=== PATIENT | female | born 2000 | race Caucasian/White ===

== ENCOUNTER 2024-08-24 11:50 | Inpatient (IN) | payer BC, MEDICAID ==
[~2024-08-24] VITALS: Ht 165.1 cm; Wt 118.7 kg
--- NOTE | 2024-08-24 12:28 | ED.PDOC ---
Back pain HPI HPI Comments HPI: Poor Historian. Denies any . Had a test two days ago that was negative. Patient on pain management taking Flexeril and ibuprofen which she took this morning at 7:00 a.m.. Patient has chronic low back pain for the last two years got worse today. Denies any recent fall or trauma or injury or lifting. Patient has history of known scoliosis and degenerative disc disease based on MRI obtained a proximally a month ago. Denies any cauda equina like symptoms. Past Medical History: Past Surgical History: HPI: 23y F who presents to the ED via EMS for chief complaint of back pain. - pt states she woke up this AM and states she was having severe lower back pain. - pt states she was unable to get out of bed and despite taking her pain management medications, she was still in pain and called EMS - pt states she has history of chronic back pain and had recent MRI which pt states showed DJD and scoliosis which was taken 1 month prior - pt states she is now having flare up and has been unable to sit, stand or walk - pt in the ED, denies any recent fall or trauma or injury or lifting. - pt states she is seeing pain management taking Flexeril and ibuprofen which she took this morning at 7:00 a.m.. - pt otherwise denies . Had a test two days ago that was negative. Past Medical History: chronic back pain, DJD, scoliosis Past Surgical History: Hysterectomy Social History: Denies ETOH, smoking, and drug use. Medications: Flexeril and ibuprofen Allergies: denies REVIEW OF SYSTEMS: CONSTITUTIONAL: Denies acute: fever, diaphoresis, chills, generalized weakness. HEAD: Denies acute: headache, photophobia Eyes: Denies acute: Double vision, vision loss, eye pain, eye discharge. EARS: Denies acute: tinnitus, hearing loss, ear discharge, ear pain, THROAT: Denies acute: sore throat, swelling, difficulty swallowing , pain with swallowing, change in voice. NECK: Denies acute: neck pain, neck swelling, stiff neck. HEART: Denies acute : chest pain, palpitations, LUNGS: Denies acute: SOB, wheezing, cough, hemoptysis ABDOMEN: Denies acute: abdominal pain, Nausea, Vomiting, diarrhea, melena , hematemesis, hematochezia SKIN: Denies acute: rash, redness, lesions, itchiness. EXTREMITIES: Denies acute: calf pain, numbness, tingling, weakness, denies pain in extremity. Neuro: Denies acute: focal neurological deficit, motor or sensory focal neurological deficit, tremors, seizure like activity, confusion, dizziness, change in mental status, loss of bowel or bladder function, cauda equina like symptoms. : Denies acute: dysuria, hematuria, flank pain, increase in urinary frequency. PSYCH: Denies acute: hallucination, suicidal ideation, homicidal ideation. FEMALE: Denies acute: abnormal vaginal bleeding, foul odor, unusual discharge. PHYSICAL EXAM: General: ---mild-----acute distress, awake and alert. Head: normocephalic, atraumatic. Neck: supple, trachea is midline, no swelling. Throat: Normal phonation. Eyes:, no erythema, no purulent discharge, no proptosis, no icterus. Heart: regular rate, regular rhythm, no significant murmur appreciated. Lungs: no apparent respiratory distress, Able to speak in full sentences. No wheezing, no rhonchi, no crackles. No stridors Clear to auscultation bilaterally. Abdomen: non tender to palpation, non distended, soft, no guarding, no rebound, + bowel sounds. Morbidly obese Neuro: Awake, Alert, oriented to name, self, situation, follows commands GCS=15. Speech is normal. Palpation of the area of complaint: Patient has midline lumbosacral tenderness to palpation. Skin: no petechia, no purpura, no cyanosis, non-pale, not jaundice. Lower extremities: --no - Pitting edema no deformity, no focal swelling, no calf TTP. Patient is able to raise bilateral lower extremities against gravity while laying supine in her gurney. Left lower extremity is better than right. Denies any cauda equina like symptoms Makes eye contact. moves all four extremities. Face: no apparent facial droop. ED COURSE: DISCLAIMER: This medical document was created using an electronic medical record system with voice recognition software and computerized dictation system. Although this document has been carefully reviewed, there might still be some phonetic and typographical errors. Occasional wrong-word or "sound-alike" substitutions may have occurred due to the inherent limitations of voice recognition software. These areas are purely typographical due to imperfections of the software programs and do not reflect any compromise in the patient's medical care. Please read the chart carefully and recognize, using context, where these substitutions have occurred. Chief Complaint: Back Pain Time Seen by MD: 12:14 Primary Care Provider: MALACHI Reviewed Notes: Structures Engineer Notes Allergies: Coded Allergies: NO KNOWN ALLERGIES (Unverified , 11/30/12) Information Source: Patient Mode of Arrival: EMS Past Medical History PAST MEDICAL HISTORY: Denies Surgical History: Denies all surgeries DISHWASHING MACHINE REPAIRER History: No Pertinent DISHWASHING MACHINE REPAIRER History Social History Smoker: Non-Smoker Alcohol: Denies ETOH Use Drugs: Denies Drug Use Was a procedure done? Was a procedure done?: No Back Pain Differential Dx Differential Diagnosis: Other (DDX included but not limited to Cauda Equina syndrome, lumbar radiculopathy, arthritis, disk herniation, sciatica, muscle strain, epidural abscess, transverse myelitis. Cord compression, spinal foraminal stenosis, spinal fractures, spondylosis, central canal stenosis, trauma, muscle sprain/strain, aneurysm/dissection, kidney stones, shingles, arthritis, Guillan [place], neoplasm.) X-Ray, Labs, Meds, VS Vital Signs Date Time Temp Pulse Resp B/P (MAP) Pulse Ox O2 Delivery O2 Flow Rate FiO2 08/24/24 16:00 22 119/69 (86) 99 08/24/24 14:00 Room Air* 0 21 08/24/24 12:13 98.7 87 16 111/87 (95) 100 98.7 Lab Test 08/24/24 16:30 Range/Units White Blood Count 11.0 H 4.4-10.8 10^3/uL Red Blood Count 5.35 H 4.0-5.20 10^6/uL Hemoglobin 14.4 12.2-16.2 g/dL Hematocrit 43.3 36.0-46.0 % Mean Corpuscular Volume 80.9 80.0-100.0 fL Mean Corpuscular Hemoglobin 27.0 L 28.0-32.0 pg Mean Corpuscular Hemoglobin Concent 33.4 32.0-36.0 g/dL Red Cell Distribution Width 14.3 11.8-14.3 % Platelet Count 315 140-450 10^3/uL Mean Platelet Volume 8.1 6.9-10.8 fL Neutrophils (%) (Auto) 91.4 H 37.0-80.0 % Lymphocytes (%) (Auto) 5.9 L 10.0-50.0 % Monocytes (%) (Auto) 2.2 0.0-12.0 % Eosinophils (%) (Auto) 0.1 0.0-7.0 % Basophils (%) (Auto) 0.4 0.0-2.0 % Neutrophils # (Auto) 10.1 H 1.6-8.6 10 ^3/uL Lymphocytes # (Auto) 0.6 0.4-5.4 10 ^3/uL Monocytes # (Auto) 0.2 0-1.3 10 ^3/uL Eosinophils # (Auto) 0 0-0.8 10 ^3/uL Basophils # (Auto) 0 0-0.2 10 ^3/uL Nucleated Red Blood Cells 0.0 % Sodium Level 141 136-145 mmol/L Potassium Level 4.2 3.5-5.1 mmol/L Chloride Level 107 98-107 mmol/L Carbon Dioxide Level 23 20-31 mmol/L Anion Gap 11 5-15 Blood Urea Nitrogen 13 9-23 mg/dL Creatinine 0.66 0.550-1.02 mg/dL Glomerular Filtration Rate Calc 126 >90 mL/min BUN/Creatinine Ratio 19.7 10.0-20.0 Serum Glucose 103 74-106 mg/dL Calcium Level 10.0 8.7-10.4 mg/dL Beta HCG, Quantitative 0.6 L 1.5-4.2 mIU/mL Current Medications Medications (Trade) Dose Ordered Sig/Gustavo Route Start Time Stop Time Status Last Admin Ketorolac Tromethamine (Toradol Injection) 30 mg ONCE ONCE IV 08/24/24 12:30 08/24/24 12:31 DC 08/24/24 14:33 Dexamethasone Sodium Phosphate (Decadron Injection) 10 mg ONCE ONCE IV 08/24/24 12:30 08/24/24 12:31 DC 08/24/24 14:33 Acetaminophen/ Hydrocodone Bitart ([place] 5/325MG Tab) 1 tab ONCE ONCE PO 08/24/24 12:30 08/24/24 12:31 DC 08/24/24 14:33 Sodium Chloride 1,000 ml @ 60 mls/hr [id number] IV 08/24/24 17:00 08/24/24 17:30 Morphine Sulfate 2 mg Q4HPRN PRN IV 08/24/24 17:00 08/24/24 20:23 Time of 1ST Reevaluation: 14:14 (PATIENT WAS UNABLE TO GIVE US URINE INITIALLY. BLADDER SCAN shows more than 1000 cc. Perez catheter was placed successfully. Given the patient's acute urinary retention in the setting of acute on chronic low back pain, I will admit the patient for observation) Reevaluation 1ST: Improved Time of 2ND Reevaluation: 21:57 Reevaluation 2ND: Improved Patient Education/Counseling: Diagnosis, Treatment Family Education/Counseling: No Family Present Comments MDM: patient presented with the above HPI.--acute and chronic low back pain----workup was initiated. patient was found with the above mentioned diagnosis. Patient denies any fall or trauma or injury recently. Patient has a recent MRI proximally a month ago that shows degenerative disease and scoliosis. Patient follows with the management. Patient denies any cauda equina like symptoms the following medications were ordered: please refer to order lists of meds and tests obtained by myself Dr. Gerardo. Patient ED course and VS have been stabilized. Patient has been reassessed in the ED and remained in a stable condition. Pertinent incidental findings were discussed with the patient and/or family. Patient/family voices understanding and is agreeable with plan. Patient has been observed in the ED adequate length of time to insure improvement/stability. Escalation of care considered: Consideration of escalation to observation or admission During the patient ED course, she was able to vitals with the urine. Bladder scan shows greater than 1000 cc. Perez catheter was placed. Given the patient's acute urinary retention in the setting of low back pain, Patient was ADMITTED to the medicine team for further evaluation and treatment of their presentation. Patient has no focal neurological deficits. Denies any saddle anesthesia. Denies any bowel dysfunction. Patient denies . All the reports of any imaging studies that were ordered by myself were reviewed by myself. SEPSIS Sepsis Screen Date sepsis recognized/suspect: Aug 24, 2024 Time Sepsis recognized/suspect: 1153 Recent Procedure: No On Antibiotic Therapy: No Respiratory Rate >20: No Heart Rate >90: No Temp<36 C (96.8 F) or >38.3 C: No SBP <90 or MAP <65 mmHG: No New Acute Mental Status Change: No Is the patient on CPAP, BIPAP,: No Physician Orders Insert Perez Catheter QSHIFT (08/24/24 16:06) Vital Signs Date Time Temp Pulse Resp B/P (MAP) Pulse Ox O2 Delivery O2 Flow Rate FiO2 08/24/24 16:00 22 119/69 (86) 99 08/24/24 14:00 Room Air* 0 21 08/24/24 12:13 98.7 87 16 111/87 (95) 100 98.7 Laboratory Tests Test 08/24/24 16:30 White Blood Count 11.0 10^3/uL (4.4-10.8) H Medications Medications Dose Ordered Sig/Gustavo Route Start Time Stop Time Status Last Admin Dose Admin Acetaminophen/ Hydrocodone Bitart 1 tab ONCE ONCE PO 08/24/24 12:30 08/24/24 12:31 DC 08/24/24 14:33 Dexamethasone Sodium Phosphate 10 mg ONCE ONCE IV 08/24/24 12:30 08/24/24 12:31 DC 08/24/24 14:33 Ketorolac Tromethamine 30 mg ONCE ONCE IV 08/24/24 12:30 08/24/24 12:31 DC 08/24/24 14:33 Morphine Sulfate 2 mg Q4HPRN PRN IV 08/24/24 17:00 08/24/24 20:23 Sodium Chloride 1,000 ml @ 60 mls/hr [id number] IV 08/24/24 17:00 08/24/24 17:30 Departure 1 Departure Time of Disposition: 21:56 Impression: Primary Impression: Low back pain Additional Impression: Acute urinary retention Disposition: ADMITTED INPATIENT Admit to: Tele Condition: Guarded Discharged With: Self Critical Care Note Critical Care Time?: No I personally scribed for PETEY GERARDO DO ([email or web address]) on 08/24/24 at 12:28. Electronically submitted by Victorino Aguilera ([email or web address]). I personally scribed for PETEY GERARDO DO ([email or web address]) on 08/24/24 at 13:48. Electronically submitted by Victorino Aguilera ([email or web address]). I personally scribed for PETEY GERARDO DO ([facility]) on 08/24/24 at 14:29. Electronically submitted by [facility]rea ([facility] I personally scribed for PETEY GERARDO DO ([facility]) on 08/24/24 at 14:32. Electronically submitted by Victorino Aguilera ([facility] I personally scribed for PETEY GERARDO DO ([facility]) on 08/24/24 at 14:53. Electronically submitted by Victorino Aguilera ([facility] I personally scribed for PETEY GERARDO DO ([facility]) on 08/24/24 at 21:54. Electronically submitted by Victorino Aguilera ([facility] PETEY GERARDO DO Aug 24, 2024 12:28
[2024-08-24] MEDS: HYDROcodone-ACET 5/325MG TAB PO ONE (14:33)
[2024-08-24] MEDS: KETOROLAC TROMETH 30 MG/ML 1ML VIAL IV ONE (14:33)
[2024-08-24 16:52] LABS: Hematocrit 43.3 % (36.0-46.0); Hemoglobin 14.4 g/dL (12.2-16.2); Mean Corpuscular Hemoglobin 27.0 pg (28.0-32.0); Mean Corpuscular Volume 80.9 fL (80.0-100.0); Nucleated Red Blood Cells % 0.0 %
[2024-08-24 16:57] LABS: Potassium 4.2 mmol/L (3.5-5.1); Sodium 141 mmol/L (136-145)
[2024-08-24 16:58] LABS: Anion Gap 11 (5-15); Calcium 10.0 mg/dL (8.7-10.4); Carbon Dioxide 23 mmol/L (20-31)
[2024-08-24] MEDS ORDERED: DOCUSATE SOD 100 MG CAP PO PRN (17:00)
[2024-08-24] MEDS ORDERED: ACETAMINOPHEN 325 MG TAB PO PRN (17:00)
[2024-08-24] MEDS ORDERED: CARISOPRODOL 350 MG TAB PO PRN (17:00)
[2024-08-24 17:03] LABS: BUN/Creatinine Ratio 19.7 (10.0-20.0); Blood Urea Nitrogen 13 mg/dL (9-23); Glucose 103 mg/dL (74-106)
--- NOTE | 2024-08-24 17:04 | DVHHP2 ---
Admitting Diagnosis: lower back pain History of Present Illness 23y F with history of chronic back pain who presents to the ED via EMS for chief complaint of back pain. States she woke up this morning and had severe lower back pain. She states she was not able to get out of bed despite taking her pain management medications and therefore called EMS. Patient had a recent MRI that showed DJD and scoliosis. States she is not able to sit, stand, or walk. Denies recent falls or injuries. Patient takes Flexeril and ibuprofen, last took at 0700. Denies , had a negative test two days ago. While in the emergency department the patient was evaluated by the provider, As per provider: Labs, vital signs, and imagining monitored. Patient will be admitted for further evaluation and treatment. I discussed admission with the patient/family and is in agreement to treatment plan. Allergies: Coded Allergies: NO KNOWN ALLERGIES (Unverified , 11/30/12) Current Medications Current Medications Medications (Trade) Dose Ordered Sig/Gustavo Route PRN Reason Start Time Stop Time Status Last Admin Sodium Chloride 1,000 ml @ 60 mls/hr [id number] IV 08/24/24 17:00 08/24/24 17:30 Acetaminophen/ Hydrocodone Bitart ([place] 5/325MG Tab) 1 tab Q4HP PRN PO MODERATE PAIN (4-6 PAIN SCALE) 08/24/24 17:00 Ondansetron HCl (Zofran) 4 mg Q4HP PRN IV NAUSEA / VOMITING 08/24/24 17:00 Docusate Sodium (Colace Capsule) 100 mg BIDPRN PRN PO FOR CONSTIPATION 08/24/24 17:00 Acetaminophen (Tylenol Tablet) 650 mg Q6HP PRN PO PAIN SCALE 1-3 OR TEMP>100.4 08/24/24 17:00 Morphine Sulfate 2 mg Q4HPRN PRN IV SEVERE PAIN (7-10 PAIN SCALE) 08/24/24 17:00 08/24/24 20:23 Carisoprodol (Soma Tablet) 350 mg Q6HP PRN PO FOR MUSCLE SPASM 08/24/24 17:00 Prednisone 40 mg DAILY PO 08/25/24 10:00 Review of Systems Constitutional: denies chills, denies fever, denies malaise Eyes: denies eye pain, denies vision change ENT: denies ear pain, denies headache, denies nasal congestion, denies painful swallowing, denies voice change Cardiovascular: denies chest pain, denies edema, denies orthopnea, denies palpitations, denies paroxysmal nocturnal dyspnea Respiratory: denies cough, denies shortness of breath Gastrointestinal: denies constipation, denies diarrhea, denies nausea, denies vomiting Genitourinary: denies dysuria, denies frequent urination, denies urethral discharge Musculoskeletal: denies back pain, denies joint pain, denies muscle pain Skin: denies bruising, denies itching, denies rash Neurological: denies focal weakness, denies headache, denies sensory changes Psychiatric: denies anxiety, denies depression Endocrine: denies polydipsia, denies polyuria Hematologic/Lymphatic: denies easy bleeding, denies easy bruising, denies enlarged lymph nodes Allergic/Immunologic: denies allergy, denies hives Vital Signs Vital Signs Date Time Temp Pulse Resp B/P (MAP) Pulse Ox O2 Delivery O2 Flow Rate FiO2 08/24/24 20:23 89 18 106/52 08/24/24 20:00 97.9 97 97.9 08/24/24 19:30 Room Air* 0 21 Physical Exam General Appearance: alert, no distress HEENT: EOMI, PERRLA, normal external inspect of ears, no icterus, no nasal drainage Neck: no carotid bruit, no jugular venous distention (JVD), no lymphadenopathy Chest: normal thorax Respiratory: clear to auscultation, normal air movement Cardiovascular: regular rate and rhythm, no diastolic murmur, no jugular venous distention (JVD), no rub, no systolic murmur Abdominal: soft, no hepatomegaly, no mass, no splenomegaly, no tenderness Genitourinary: grossly normal external Musculoskeletal: no joint tenderness, no swelling Extremities: normal pulses, no calf tenderness, no clubbing, no cyanosis, no edema Skin: no bruising, no jaundice, no rash Neurological: alert, No focal deficit SEPSIS Sepsis Screen Date sepsis recognized/suspect: Aug 24, 2024 Time Sepsis recognized/suspect: 1153 Recent Procedure: No On Antibiotic Therapy: No Respiratory Rate >20: No Heart Rate >90: No Temp<36 C (96.8 F) or >38.3 C: No SBP <90 or MAP <65 mmHG: No New Acute Mental Status Change: No Is the patient on CPAP, BIPAP,: No Physician Orders Insert Perez Catheter QSHIFT (08/24/24 16:06) Admit (08/24/24 17:00) Code Status (08/24/24 17:00) Sodium Chloride 0.9% (08/24/24 17:00) Hydrocodone-Acet 5/325mg Tab ([place] 5/32 (08/24/24 17:00) Ondansetron Hcl (Zofran) (08/24/24 17:00) Docusate Sodium Capsule (Colace Capsule) (08/24/24 17:00) Complete Blood Count (08/25/24 04:00) Comprehensive Metabolic Panel (08/25/24 04:00) Pt Request For Service (08/24/24 17:00) Acetaminophen Tablet (Tylenol Tablet) (08/24/24 17:00) Morphine Sulfate Injection (08/24/24 17:00) Ls Spine Wo Contrast (08/24/24 17:00) Thoracic Spine Wo Contras (08/24/24 17:00) Sequential Compression Device (08/24/24 17:00) Carisoprodol Tablet (Soma Tablet) (08/24/24 17:00) Prednisone Tablet (08/25/24 10:00) Regular Diet (08/24/24 Dinner) Vital Signs Date Time Temp Pulse Resp B/P (MAP) Pulse Ox O2 Delivery O2 Flow Rate FiO2 08/24/24 20:23 89 18 106/52 08/24/24 20:00 97.9 89 18 106/52 (70) 97 97.9 08/24/24 19:30 Room Air* 0 21 08/24/24 16:00 22 119/69 (86) 99 08/24/24 14:00 Room Air* 0 21 08/24/24 12:13 98.7 87 16 111/87 (95) 100 98.7 Laboratory Tests Test 08/24/24 16:30 White Blood Count 11.0 10^3/uL (4.4-10.8) H Medications Medications Dose Ordered Sig/Gustavo Route Start Time Stop Time Status Last Admin Dose Admin Acetaminophen/ Hydrocodone Bitart 1 tab ONCE ONCE PO 08/24/24 12:30 08/24/24 12:31 DC 08/24/24 14:33 Dexamethasone Sodium Phosphate 10 mg ONCE ONCE IV 08/24/24 12:30 08/24/24 12:31 DC 08/24/24 14:33 Ketorolac Tromethamine 30 mg ONCE ONCE IV 08/24/24 12:30 08/24/24 12:31 DC 08/24/24 14:33 Morphine Sulfate 2 mg Q4HPRN PRN IV 08/24/24 17:00 08/24/24 20:23 Sodium Chloride 1,000 ml @ 60 mls/hr [id number] IV 08/24/24 17:00 08/24/24 17:30 Results Labs Test 08/24/24 17:53 08/24/24 16:30 Range/Units Urine Color Light-yellow Yellow Urine Clarity Clear Clear Urine pH 5.5 5.0-9.0 Urine Specific [place] 1.023 1.001-1.035 Urine Protein Negative Negative Urine Ketones 1+ H Negative Urine Blood Trace H Negative /uL Urine Nitrite Negative Negative Urine Bilirubin Negative Negative Urine Urobilinogen Normal Negative mg/dL Urine Leukocyte Esterase Negative Negative /uL Urine RBC 19 0 - 4 /hpf Urine Microscopic WBC 1 0-5 /HPF Urine Squamous Epithelial Cells Few <5 /hpf Urine Bacteria Few H None Seen /hpf Urine Mucus Few None Seen Urine Glucose Normal Normal mg/dL White Blood Count 11.0 H 4.4-10.8 10^3/uL Red Blood Count 5.35 H 4.0-5.20 10^6/uL Hemoglobin 14.4 12.2-16.2 g/dL Hematocrit 43.3 36.0-46.0 % Mean Corpuscular Volume 80.9 80.0-100.0 fL Mean Corpuscular Hemoglobin 27.0 L 28.0-32.0 pg Mean Corpuscular Hemoglobin Concent 33.4 32.0-36.0 g/dL Red Cell Distribution Width 14.3 11.8-14.3 % Platelet Count 315 140-450 10^3/uL Mean Platelet Volume 8.1 6.9-10.8 fL Neutrophils (%) (Auto) 91.4 H 37.0-80.0 % Lymphocytes (%) (Auto) 5.9 L 10.0-50.0 % Monocytes (%) (Auto) 2.2 0.0-12.0 % Eosinophils (%) (Auto) 0.1 0.0-7.0 % Basophils (%) (Auto) 0.4 0.0-2.0 % Neutrophils # (Auto) 10.1 H 1.6-8.6 10 ^3/uL Lymphocytes # (Auto) 0.6 0.4-5.4 10 ^3/uL Monocytes # (Auto) 0.2 0-1.3 10 ^3/uL Eosinophils # (Auto) 0 0-0.8 10 ^3/uL Basophils # (Auto) 0 0-0.2 10 ^3/uL Nucleated Red Blood Cells 0.0 % Sodium Level 141 136-145 mmol/L Potassium Level 4.2 3.5-5.1 mmol/L Chloride Level 107 98-107 mmol/L Carbon Dioxide Level 23 20-31 mmol/L Anion Gap 11 5-15 Blood Urea Nitrogen 13 9-23 mg/dL Creatinine 0.66 0.550-1.02 mg/dL Glomerular Filtration Rate Calc 126 >90 mL/min BUN/Creatinine Ratio 19.7 10.0-20.0 Serum Glucose 103 74-106 mg/dL Calcium Level 10.0 8.7-10.4 mg/dL Beta HCG, Quantitative 0.6 L 1.5-4.2 mIU/mL Plan 1. Intractable back pain Monitor, CT L spine, CT T spine, muscle relaxants, test, steroids, PT eval, PRN pain meds 2. Scoliosis Monitor, CT L spine, CT T spine, muscle relaxants, test, steroids, PT eval, PRN pain meds 3. Unstable gait Monitor, CT L spine, CT T spine, muscle relaxants, test, steroids, PT eval, PRN pain meds Plan discussed with: Patient, Other MAJOR BRAN NP Aug 24, 2024 17:04
[2024-08-24 17:18] LABS: Chloride 107 mmol/L (98-107)
[2024-08-24] MEDS: SODIUM CHLORIDE 0.9% 1,000 ML IV SCH (17:30)
[2024-08-24 18:45] LABS: Urine Protein, UAD Negative (Negative)
--- NOTE | 2024-08-24 19:12 | DVH ---
CT OF THE THORACIC SPINE WITHOUT CONTRAST HISTORY: Back pain COMPARISON: None TECHNIQUE: Axial images through the thoracic spine were obtained without contrast. Coronal and sagitt al reformats were obtained. One or more of the following radiation dose reduction techniques were use d for this examination: automated exposure control, adjustment of the mA and/or kV according to patie nt size, use of iterative reconstruction technique. Dose: CTDIvol: 38.72 mGy, DLP: 1401.77 mGy.cm FINDINGS: No acute fracture. There is minimal scoliosis. Vertebral body heights are maintained and disc heights are preserved. A right eccentric disc osteophyte complex at C6-7 effaces the thecal sac and may cont ribute to mild right neural foraminal narrowing. No cord compression. Visualized intrathoracic and i ntra-abdominal structures are unremarkable. IMPRESSION: 1. No acute displaced fracture. 2. Mild degenerative changes of the thoracic spine as detailed. 3. If clinical symptoms persist, MRI may be beneficial in further evaluation.
--- NOTE | 2024-08-24 19:16 | DVH ---
CT LS SPINE WO CONTRAST INDICATION: intractable back pain EXAM DATE: 08/24/2024 05:55 PM COMPARISON: None RADIATION DOSE: CTDIvol: 38.47 mGy, DLP: 1229.66 mGy*cm PROCEDURE: Utilizing the CT scanner, contiguous axial scans were obtained through the lumbar spine. C oronal and sagittal reformatted images were then generated. All CT scans at this medical facility are performed using dose modulation techniques as appropriate t o a performed exam including the following: Automated exposure control was utilized; adjustment of th e MA and/or KV according to patient size; and use of iterative reconstruction technique. FINDINGS: There is no acute displaced fracture. There is loss of intervertebral disc height at L5-S1 . There is minimal endplate osteophytosis. The paraspinal soft tissues are unremarkable. On axial images: At T12-L1, the posterior disc margin, thecal sac, neural foramina, and facet joints are normal. At L1-2, the posterior disc margin, thecal sac, neural foramina, and facet joints are normal. At L2-3, the posterior disc margin, thecal sac, neural foramina, and facet joints are normal. At L3-4, the posterior disc margin, thecal sac, neural foramina, and facet joints are normal. At L4-5, a central disc protrusion effaces the thecal sac and contributes to at least moderate spinal stenosis. At L5-S1, a right paracentral disc extrusion effaces the thecal sac and contributes to at least mild spinal stenosis. There is possible contact/compression of the right S1 nerve root. There is at least mild right neural foraminal stenosis. IMPRESSION: 1. No acute fracture. 2. Right paracentral disc extrusion at L5-S1 with possible contact/compression of the right S1 nerve root. MRI suggested in further evaluation. 3. At additional findings as detailed.
[2024-08-24] MEDS: MORPHINE SULFATE INJ 2 MG/ml SYRG IV PRN (20:23)
[2024-08-24 23:02] VITALS: PULSE 77; RESP 18; O2SAT 95
[2024-08-24] MEDS ORDERED: IBUP-1455 PO (23:02)
[2024-08-24] MEDS ORDERED: CYCL-614 PO (23:02)
[2024-08-24] MEDS ORDERED: PHEN15CA PO (23:02)
[2024-08-24 23:03] VITALS: BP 118/68; PULSE 78; RESP 19; TEMP 99.1; O2SAT 96
[2024-08-25 01:00] VITALS: BP 108/66; PULSE 85; RESP 20; TEMP 98.8; O2SAT 98
[2024-08-25] MEDS: HYDROcodone-ACET 5/325MG TAB PO PRN (03:42)
[2024-08-25 05:00] VITALS: BP 99/60; PULSE 69; RESP 18; TEMP 97.1; O2SAT 97
[2024-08-25 07:07] LABS: Hematocrit 41.2 % (36.0-46.0); Hemoglobin 14.1 g/dL (12.2-16.2); Mean Corpuscular Hemoglobin 27.3 pg (28.0-32.0); Mean Corpuscular Volume 80.2 fL (80.0-100.0); Nucleated Red Blood Cells % 0.0 %
[2024-08-25 07:28] LABS: Alanine Aminotransferase 20 U/L (7-40); Albumin 4.6 g/dL (3.2-4.8); Alkaline Phosphatase 65 U/L (46-116); Anion Gap 9 (5-15); Bilirubin, Total 0.4 mg/dL (0.2-1.0); Calcium 10.0 mg/dL (8.7-10.4); Carbon Dioxide 24 mmol/L (20-31); Potassium 4.1 mmol/L (3.5-5.1); Sodium 141 mmol/L (136-145); Total Protein 7.1 g/dL (5.7-8.2)
[2024-08-25 07:29] LABS: Chloride 108 mmol/L (98-107); Glucose 111 mg/dL (74-106)
--- NOTE | 2024-08-25 08:10 | DVHPN2 ---
Progress Note - Dictate Date Seen: Aug 25, 2024 Medical Necessity Reason Pt with a Central, PICC or Fol: No vital signs Vital Sign Date Time Temp Pulse Resp B/P (MAP) Pulse Ox O2 Delivery O2 Flow Rate FiO2 08/25/24 05:00 97.1 69 18 99/60 (73) 97 97.1 08/24/24 23:02 Room Air* 0 21 Total Intake and Output 08/24/24 08/24/24 08/25/24 15:00 23:00 07:00 Intake Total 240 ml Output Total 700 ml 550 ml Balance -700 ml -310 ml medications Current Medications Medications Dose Ordered Sig/Gustavo Route Start Time Stop Time Status Last Admin Dose Admin Sodium Chloride 1,000 ml @ 60 mls/hr [id number] IV 08/24/24 17:00 08/24/24 17:30 60 MLS/HR Acetaminophen/ Hydrocodone Bitart 1 tab Q4HP PRN PO 08/24/24 17:00 08/25/24 03:42 1 TAB Ondansetron HCl 4 mg Q4HP PRN IV 08/24/24 17:00 Docusate Sodium 100 mg BIDPRN PRN PO 08/24/24 17:00 Acetaminophen 650 mg Q6HP PRN PO 08/24/24 17:00 Morphine Sulfate 2 mg Q4HPRN PRN IV 08/24/24 17:00 08/24/24 20:23 2 MG Carisoprodol 350 mg Q6HP PRN PO 08/24/24 17:00 Prednisone 40 mg DAILY PO 08/25/24 10:00 objective General Appearance: alert, no distress HEENT: EOMI, PERRLA, normal external inspect of ears, no icterus, no nasal drainage Neck: no carotid bruit, no jugular venous distention (JVD), no lymphadenopathy Chest: normal thorax Respiratory: clear to auscultation, normal air movement Cardiovascular: regular rate and rhythm, no diastolic murmur, no jugular venous distention (JVD), no rub, no systolic murmur Abdominal: soft, no hepatomegaly, no mass, no splenomegaly, no tenderness Musculoskeletal: no joint tenderness, no swelling Extremities: normal pulses, no calf tenderness, no clubbing, no cyanosis, no edema Skin: no bruising, no jaundice, no rash Neurological: alert, No focal deficit laboratory and microbiology Laboratory Tests 08/25/24 06:09 Test 08/25/24 06:09 Range/Units Serum Glucose 111 H 74-106 mg/dL Problem List 1. Intractable back pain Monitor, CT L spine, CT T spine, muscle relaxants, test, steroids, PT eval, PRN pain meds 2. Scoliosis Monitor, CT L spine, CT T spine, PT eval, PRN pain meds 3. Unstable gait Monitor, CT L spine, CT T spine, PT eval Assessment/Plan Subjective Patient is awake and alert. Objective Patient was admitted for intractable back pain. CT imaging is suggesting possible nerve root compression to her lumbar spine. MRI has been ordered and currently study is pending. Patient states she has some improvement today with the initiation of steroids and muscle relaxants. Orthopedic spinal surgeon has been consulted. Plan Await MRI results. Orthopedic spinal surgeon recommendations appreciated. Start Motrin to decrease inflammation. Plan discussed with: Patient, Other MAJOR BRAN NP Aug 25, 2024 08:10
--- NOTE | 2024-08-25 08:33 | DVHINCON2 ---
Consultation - Spinal Surgery Date Seen: Aug 25, 2024 Referring Physician Referring Physician Attending Doctor: Yeni Sky Puttier Reason for Consultation lower back pain History of Present Illness History of Present Illness History of Present Illness History of Present Illness 23y F with history of chronic back pain who presents to the ED via EMS for chief complaint of back pain. States she woke up this morning and had severe lower back pain. She states she was not able to get out of bed despite taking her pain management medications and therefore called EMS. Patient had a recent MRI that showed DJD and scoliosis. States she is not able to sit, stand, or walk. Denies recent falls or injuries. Patient takes Flexeril and ibuprofen, last took at 0700. Denies , had a negative test two days ago. Past Medical/Surgical History Past Medical/Surgical History Chronic back pain Allergies and medications Allergies: Coded Allergies: NO KNOWN ALLERGIES (Unverified , 11/30/12) Home Meds Reported Medications Phentermine HCl (Phentermine Hydrochloride) 15 Mg Cap, 1 CAP PO DAILY 08/24/24 Cyclobenzaprine HCl (Cyclobenzaprine Hydrochlo) 5 Mg Tab, 1 TAB PO BIDPRN PRN for muscle spasm 08/24/24 Ibuprofen Micronized (Ibuprofen) 800 Mg Tab, 1 TAB PO TID 08/24/24 Review of systems Review of Systems: HEENT:Normal, CVS:Normal, RESPIRATORY:Normal, GI:Normal, :Normal, MSK:Normal, NEURO:Normal (Low back pain), NEURO:Abnormal Examination Vital signs Imaging: CT OF THE THORACIC SPINE WITHOUT CONTRAST HISTORY: Back pain COMPARISON: None TECHNIQUE: Axial images through the thoracic spine were obtained without cont rast. Coronal and sagittal reformats were obtained. One or more of the following radiation dose reduction techniques were used for this examination: automated exposure control, adjustment of the mA and/or kV according to patient size, use of iterative reconstruction technique. Dose: CTDIvol: 38.72 mGy, DLP: 1401.77 mGy.cm FINDINGS: No acute fracture. There is minimal scoliosis. Vertebral body heights are maintained and disc heights are preserved. A right eccentric disc osteophyte complex at C6-7 effaces the thecal sac and may contribute to mild right neural foraminal narrowing. No cord compression. Visualized intrathoracic and intra- abdominal structures are unremarkable. IMPRESSION: 1. No acute displaced fracture. 2. Mild degenerative changes of the thoracic spine as detailed. 3. If clinical symptoms persist, MRI may be beneficial in further evaluation. EDURE(s): LS2CT - LS SPINE WO CONTRAST REASON: intractable back pain ORDER NUMBER(s): [id number], ACCESSION NUMBER(s): [id number] CT LS SPINE WO CONTRAST INDICATION: intractable back pain EXAM DATE: 08/24/2024 05:55 PM COMPARISON: None RADIATION DOSE: CTDIvol: 38.47 mGy, DLP: 1229.66 mGy*cm PROCEDURE: Utilizing the CT scanner, contiguous axial scans were obtained through the lumbar spine. Coronal and sagittal reformatted images were then generated. All CT scans at this medical facility are performed using dose modulation techniques as appropriate to a performed exam including the following: Automated exposure control was utilized; adjustment of the MA and/or KV according to patient size; and use of iterative reconstruction technique. FINDINGS: There is no acute displaced fracture. There is loss of intervertebral disc height at L5-S1. There is minimal endplate osteophytosis. The paraspinal soft tissues are unremarkable. On axial images: At T12-L1, the posterior disc margin, thecal sac, neural foramina, and facet joints are normal. At L1-2, the posterior disc margin, thecal sac, neural foramina, and facet joints are normal. At L2-3, the posterior disc margin, thecal sac, neural foramina, and facet joints are normal. At L3-4, the posterior disc margin, thecal sac, neural foramina, and facet joints are normal. At L4-5, a central disc protrusion effaces the thecal sac and contributes to at least moderate spinal stenosis. At L5-S1, a right paracentral disc extrusion effaces the thecal sac and contributes to at least mild spinal stenosis. There is possible contact/compression of the right S1 nerve root. There is at least mild right neural foraminal stenosis. IMPRESSION: 1. No acute fracture. 2. Right paracentral disc extrusion at L5-S1 with possible contact/compression of the right S1 nerve root. MRI suggested in further evaluation. 3. At additional findings as detailed. Vital Signs Date Time Temp Pulse Resp B/P (MAP) Pulse Ox O2 Delivery O2 Flow Rate FiO2 08/25/24 05:00 97.1 69 18 99/60 (73) 97 97.1 08/24/24 23:02 Room Air* 0 21 Medications Current Medications Medications (Trade) Dose Ordered Sig/Gustavo Route PRN Reason Start Time Stop Time Status Last Admin Sodium Chloride 1,000 ml @ 60 mls/hr [id number] IV 08/24/24 17:00 08/24/24 17:30 Acetaminophen/ Hydrocodone Bitart ([place] 5/325MG Tab) 1 tab Q4HP PRN PO MODERATE PAIN (4-6 PAIN SCALE) 08/24/24 17:00 08/25/24 03:42 Ondansetron HCl (Zofran) 4 mg Q4HP PRN IV NAUSEA / VOMITING 08/24/24 17:00 Docusate Sodium (Colace Capsule) 100 mg BIDPRN PRN PO FOR CONSTIPATION 08/24/24 17:00 Acetaminophen (Tylenol Tablet) 650 mg Q6HP PRN PO PAIN SCALE 1-3 OR TEMP>100.4 08/24/24 17:00 Morphine Sulfate 2 mg Q4HPRN PRN IV SEVERE PAIN (7-10 PAIN SCALE) 08/24/24 17:00 08/24/24 20:23 Carisoprodol (Soma Tablet) 350 mg Q6HP PRN PO FOR MUSCLE SPASM 08/24/24 17:00 Prednisone 40 mg DAILY PO 08/25/24 10:00 Laboratory Labs Test 08/25/24 06:09 08/24/24 17:53 08/24/24 16:30 Range/Units White Blood Count 9.0 4.4-10.8 10^3/uL Red Blood Count 5.14 4.0-5.20 10^6/uL Hemoglobin 14.1 12.2-16.2 g/dL Hematocrit 41.2 36.0-46.0 % Mean Corpuscular Volume 80.2 80.0-100.0 fL Mean Corpuscular Hemoglobin 27.3 L 28.0-32.0 pg Mean Corpuscular Hemoglobin Concent 34.1 32.0-36.0 g/dL Red Cell Distribution Width 14.3 11.8-14.3 % Platelet Count 342 140-450 10^3/uL Mean Platelet Volume 8.1 6.9-10.8 fL Neutrophils (%) (Auto) 82.7 H 37.0-80.0 % Lymphocytes (%) (Auto) 10.4 10.0-50.0 % Monocytes (%) (Auto) 6.8 0.0-12.0 % Eosinophils (%) (Auto) 0.0 0.0-7.0 % Basophils (%) (Auto) 0.1 0.0-2.0 % Neutrophils # (Auto) 7.4 1.6-8.6 10 ^3/uL Lymphocytes # (Auto) 0.9 0.4-5.4 10 ^3/uL Monocytes # (Auto) 0.6 0-1.3 10 ^3/uL Eosinophils # (Auto) 0 0-0.8 10 ^3/uL Basophils # (Auto) 0 0-0.2 10 ^3/uL Nucleated Red Blood Cells 0.0 % Sodium Level 141 136-145 mmol/L Potassium Level 4.1 3.5-5.1 mmol/L Chloride Level 108 H 98-107 mmol/L Carbon Dioxide Level 24 20-31 mmol/L Anion Gap 9 5-15 Blood Urea Nitrogen 15 9-23 mg/dL Creatinine 0.68 0.550-1.02 mg/dL Glomerular Filtration Rate Calc 125 >90 mL/min Serum Glucose 111 H 74-106 mg/dL Calcium Level 10.0 8.7-10.4 mg/dL Total Bilirubin 0.4 0.2-1.0 mg/dL Aspartate Amino Transferase (AST) 13 13-40 U/L Alanine Aminotransferase (ALT) 20 7-40 U/L Alkaline Phosphatase 65 46-116 U/L Total Protein 7.1 5.7-8.2 g/dL Albumin 4.6 3.2-4.8 g/dL Urine Color Light-yellow Yellow Urine Clarity Clear Clear Urine pH 5.5 5.0-9.0 Urine Specific [place] 1.023 1.001-1.035 Urine Protein Negative Negative Urine Ketones 1+ H Negative Urine Blood Trace H Negative /uL Urine Nitrite Negative Negative Urine Bilirubin Negative Negative Urine Urobilinogen Normal Negative mg/dL Urine Leukocyte Esterase Negative Negative /uL Urine RBC 19 0 - 4 /hpf Urine Microscopic WBC 1 0-5 /HPF Urine Squamous Epithelial Cells Few <5 /hpf Urine Bacteria Few H None Seen /hpf Urine Mucus Few None Seen Urine Glucose Normal Normal mg/dL Beta HCG, Quantitative 0.6 L 1.5-4.2 mIU/mL Examination: GENERAL:Normal, HEENT:Normal, NECK:Normal, LUNGS:Normal, CVS:Normal, ABDOMEN:Normal, MSK:Normal, SKIN:Normal, NEURO:Abnormal, :Normal Problem List/Assessment/Plan Problems: (1) Herniated lumbar intervertebral disc Assessment and Plan Right paracentral disc extrusion at L5-S1 with possible contact/compression of the right S1 nerve root. Pending MRI further care per admitting team discretion pain management including muscle relaxers, change Soma to a scheduled dose this will help control muscle spasms better Physical therapy once pain is under control for evaluation of strength posture flexibility for the herniated disc at L5-S1 further recommendations when MRI complete Call with questions Joel Su [facility] Orthopaedic Spine Surgery nurse practitioner For Dr Diane Montes Patient was examined, chart reviewed, labs evaluated, and diagnostic studies and findings analyzed. Case was discussed with Dr. Ajay Montes who formulated the plan of care. This medical document was created using an electronic medical record system with [employer] dictation system. Although this document has been carefully reviewed, there might still be some phonetic and typographical errors. These areas are purely typographical due to imperfections of the software programs, and do not reflect any compromise in the patient's medical care. Plan discussed with Plan discussed with: Patient STEPHANIE SU NP Aug 25, 2024 08:33
[2024-08-25 09:40] VITALS: PULSE 77; RESP 19; TEMP 98.2; O2SAT 99
[2024-08-25] MEDS: predniSONE 20 MG TAB PO SCH (10:03)
[2024-08-25] MEDS: CARISOPRODOL 350 MG TAB PO PRN (10:03)
[2024-08-25 10:45] LABS: BUN/Creatinine Ratio 22.1 (10.0-20.0); Blood Urea Nitrogen 15 mg/dL (9-23)
[2024-08-25 13:30] VITALS: BP 110/50; PULSE 79; RESP 17; TEMP 98.1; O2SAT 98
--- NOTE | 2024-08-25 14:43 | DVH ---
PROCEDURE: MRI LUMBAR SPINE WO CONTRAST Indication: poss nerve compression COMPARISON: CT lumbar spine 08/24/2024 TECHNIQUE: Multiplanar multisequence images of the the lumbar spine are obtained. FINDINGS: For the purpose of this examination, there are 5 lumbar vertebral body types counting from the lumbos acral junction. The lumbar vertebral body heights are maintained. Alignment maintained. Moderate disc space narrowin g and desiccation at L4-5 and L5-S1. No abnormal marrow edema. Diffusely decreased T1 signal within the marrow. Conus terminates at the level of the L1-2 disc space level. T12-L1: No spinal canal, neural foraminal stenosis. L1-2: Tiny disc protrusion. Mild facet and flavum hypertrophy. No spinal canal, neural foraminal sten osis. L2-3: No spinal canal, neural foraminal stenosis. L3-4: No spinal canal, neural foraminal stenosis. L4-5: 5 mm disc protrusion. Azmb-tj-fhagwsli facet and flavum hypertrophy. Dcqg-ld-ootglxzb bilatera l neural foraminal stenosis. L5-S1: Right paracentral disc protrusion extending 5 mm posteriorly. This abuts the descending right S1 nerve root. No spinal canal stenosis. Moderate to severe right and moderate left neural foraminal stenosis. IMPRESSION: Moderate lumbar degenerative disc disease L4-5, L5-S1. Right paracentral disc protrusion L5-S1 which abuts the descending right S1 nerve root. Moderate to severe right, moderate left neural foraminal stenosis at L5-S1. Wyyc-tl-acxgubcg neural foraminal stenosis L4-5. Diffusely decreased T1 signal within the marrow which can be secondary to marrow reconversion, anemia , myeloproliferative disorders, myelo dysplasia, leukemia / lymphoma. Correlate clinically.
[2024-08-25] MEDS: IBUPROFEN 800 MG TAB PO SCH (15:41)
[2024-08-25 16:30] VITALS: BP 108/61; PULSE 72; RESP 19; TEMP 98; O2SAT 98
[2024-08-25 21:00] VITALS: BP 115/65; PULSE 70; RESP 18; TEMP 98.3; O2SAT 94
[2024-08-26] VITALS (8 sets, daily range): BP systolic 103–124; BP diastolic 53–78; PULSE 61–81; RESP 17–18; TEMP 96.1–98.5; O2SAT 96–100
[2024-08-26] MEDS: ONDANSETRON HCL 4 MG/2 ML VIAL IV PRN (02:03)
--- NOTE | 2024-08-26 13:56 | PRN ---
Misceleneous Note Note Note Follow up on consult Patient pain is currently manageable with soma Said is agreeable for outpatient follow up, She will see her PCP and obtain a referral for Dr Montes [phone] Recommend DC with soma TIB, and norco 5mg q 6hr PRN pain She will follow up for surgical planning as a outpatient. MRI result PROCEDURE: MRI LUMBAR SPINE WO CONTRAST Indication: poss nerve compression COMPARISON: CT lumbar spine 08/24/2024 TECHNIQUE: Multiplanar multisequence images of the the lumbar spine are obtained. FINDINGS: For the purpose of this examination, there are 5 lumbar vertebral body types counting from the lumbosacral junction. The lumbar vertebral body heights are maintained. Alignment maintained. Moderate disc space narrowing and desiccation at L4-5 and L5-S1. No abnormal marrow edema. Diffusely decreased T1 signal within the marrow. Conus terminates at the level of the L1-2 disc space level. T12-L1: No spinal canal, neural foraminal stenosis. L1-2: Tiny disc protrusion. Mild facet and flavum hypertrophy. No spinal canal, neural foraminal stenosis. L2-3: No spinal canal, neural foraminal stenosis. L3-4: No spinal canal, neural foraminal stenosis. L4-5: 5 mm disc protrusion. Zbnn-mm-iwnvydmv facet and flavum hypertrophy. Lwua-xw-bqgqryci bilateral neural foraminal stenosis. L5-S1: Right paracentral disc protrusion extending 5 mm posteriorly. This abuts the descending right S1 nerve root. No spinal canal stenosis. Moderate to severe right and moderate left neural foraminal stenosis. IMPRESSION: Moderate lumbar degenerative disc disease L4-5, L5-S1. Right paracentral disc protrusion L5-S1 which abuts the descending right S1 nerve root. Moderate to severe right, moderate left neural foraminal stenosis at L5-S1. Pxew-kb-pjnneoqc neural foraminal stenosis L4-5. Diffusely decreased T1 signal within the marrow which can be secondary to marrow reconversion, anemia, myeloproliferative disorders, myelo dysplasia, leukemia / lymphoma. Correlate clinically. Call with moises Monroy [facility] Orthopaedic Spine Surgery nurse practitioner For Dr Diane Montes Patient was examined, chart reviewed, labs evaluated, and diagnostic studies and findings analyzed. Case was discussed with Dr. Ajay Montes who formulated the plan of care. This medical document was created using an electronic medical record system with [employer] dictation system. Although this document has been carefully reviewed, there might still be some phonetic and typographical errors. These areas are purely typographical due to imperfections of the software programs, and do not reflect any compromise in the patient's medical care. STEPHANIE MONROY NP Aug 26, 2024 13:56
[2024-08-26] MEDS ORDERED: CARI-579 PO (19:15)
[2024-08-26] MEDS ORDERED: HYDR-4902 PO (19:15)
[2024-08-26] MEDS ORDERED: PRED20TA2 PO (19:15)
--- NOTE | 2024-08-26 19:18 | DVHDS2 ---
Discharge Summary Date of Admission Aug 24, 2024 at 17:00 Date of Discharge: Aug 26, 2024 Labs/Diagnostic Data: Laboratory Results Test 08/25/24 06:09 08/24/24 17:53 08/24/24 16:30 White Blood Count 9.0 10^3/uL (4.4-10.8) Red Blood Count 5.14 10^6/uL (4.0-5.20) Hemoglobin 14.1 g/dL (12.2-16.2) Hematocrit 41.2 % (36.0-46.0) Mean Corpuscular Volume 80.2 fL (80.0-100.0) Mean Corpuscular Hemoglobin 27.3 pg (28.0-32.0) Mean Corpuscular Hemoglobin Concent 34.1 g/dL (32.0-36.0) Red Cell Distribution Width 14.3 % (11.8-14.3) Platelet Count 342 10^3/uL (140-450) Mean Platelet Volume 8.1 fL (6.9-10.8) Neutrophils (%) (Auto) 82.7 % (37.0-80.0) Lymphocytes (%) (Auto) 10.4 % (10.0-50.0) Monocytes (%) (Auto) 6.8 % (0.0-12.0) Eosinophils (%) (Auto) 0.0 % (0.0-7.0) Basophils (%) (Auto) 0.1 % (0.0-2.0) Neutrophils # (Auto) 7.4 10 ^3/uL (1.6-8.6) Lymphocytes # (Auto) 0.9 10 ^3/uL (0.4-5.4) Monocytes # (Auto) 0.6 10 ^3/uL (0-1.3) Eosinophils # (Auto) 0 10 ^3/uL (0-0.8) Basophils # (Auto) 0 10 ^3/uL (0-0.2) Nucleated Red Blood Cells 0.0 % Sodium Level 141 mmol/L (136-145) Potassium Level 4.1 mmol/L (3.5-5.1) Chloride Level 108 mmol/L (98-107) Carbon Dioxide Level 24 mmol/L (20-31) Anion Gap 9 (5-15) Blood Urea Nitrogen 15 mg/dL (9-23) Creatinine 0.68 mg/dL (0.550-1.02) Glomerular Filtration Rate Calc 125 mL/min (>90) BUN/Creatinine Ratio 22.1 (10.0-20.0) Serum Glucose 111 mg/dL (74-106) Calcium Level 10.0 mg/dL (8.7-10.4) Total Bilirubin 0.4 mg/dL (0.2-1.0) Aspartate Amino Transferase (AST) 13 U/L (13-40) Alanine Aminotransferase (ALT) 20 U/L (7-40) Alkaline Phosphatase 65 U/L (46-116) Total Protein 7.1 g/dL (5.7-8.2) Albumin 4.6 g/dL (3.2-4.8) Urine Color Light-yellow (Yellow) Urine Clarity Clear (Clear) Urine pH 5.5 (5.0-9.0) Urine Specific [place] 1.023 (1.001-1.035) Urine Protein Negative (Negative) Urine Ketones 1+ (Negative) Urine Blood Trace /uL (Negative) Urine Nitrite Negative (Negative) Urine Bilirubin Negative (Negative) Urine Urobilinogen Normal mg/dL (Negative) Urine Leukocyte Esterase Negative /uL (Negative) Urine RBC 19 /hpf (0 - 4) Urine Microscopic WBC 1 /HPF (0-5) Urine Squamous Epithelial Cells Few /hpf (<5) Urine Bacteria Few /hpf (None Seen) Urine Mucus Few (None Seen) Urine Glucose Normal mg/dL (Normal) Beta HCG, Quantitative 0.6 mIU/mL (1.5-4.2) Other Laboratory Tests 08/25/24 06:09 Brief Hx & Hospital Course: 23y F with history of chronic back pain who presents to the ED via EMS for chief complaint of back pain. States she woke up this morning and had severe lower back pain. She states she was not able to get out of bed despite taking her pain management medications and therefore called EMS. Patient had a recent MRI that showed DJD and scoliosis. States she is not able to sit, stand, or walk. Denies recent falls or injuries. Patient takes Flexeril and ibuprofen, last took at 0700. Denies , had a negative test two days ago. Patient was admitted on 08/24/2024 for intractable back pain. Patient states she has a history of chronic back pain. CT lumbar spine showed no acute fracture. Right paracentral disc extrusion at L5 2S1 with possible contact or compression of the right S1 nerve root. MRI was suggested. Lumbar spine MRI showed moderate lumbar degenerative disc disease right paracentral disc protrusion which abuts to the descending right s1 nerve root moderate to severe right and moderate left foraminal stenosis. Patient was started on muscle relaxant and oral steroids. Patient also had pain reliever medication as needed. Patient was seen by orthopedic spinal surgeon. Images were reviewed. Patient was seen by physical therapy and she was able to ambulate 60 feet. Patient was cleared for discharge by ortho spinal surgeon who stated she could pursue surgery out patient no emergent need at this time. Patient was discharged home on oral steroids and her muscle relaxant was changed to Soma. She was instructed to follow up with her PCP in one week to obtain a referral for outpatient orthopedic spinal surgeon. There were no complaints or new complaints upon discharge, all questions and concerns were answered. Patient was advised to return to the ER or call 911 if any headaches, dizziness, shortness of breath, chest pain, bleeding, fevers, or worsening of medical condition. Patient/Family was counseled about treatment plan, medications, possible side effects, patient verbalized understanding. All questions were answered to the best of my ability. The patient symptoms improved and they are okay to be DC. Condition at Discharge: Stable Final Diagnosis/Problems List Intractable back pain Discharge Disposition: Home Discharge Instruct/Medications Diet: Regular Activity: No Restrictions, As Tolerated Scheduled Ibuprofen Micronized (Ibuprofen), 1 TAB PO TID, (Reported) Phentermine HCl (Phentermine Hydrochloride), 1 CAP PO DAILY, (Reported) Prednisone (Prednisone), 40 MG PO DAILY Scheduled PRN Carisoprodol (Carisoprodol), 350 MG PO Q8HR PRN Hydrocodone-Acetaminophen (Hydrocodone Bitartrate/AC 5-325 mg), 1 TAB PO Q8HP PRN Discontinued Medications Cyclobenzaprine HCl (Cyclobenzaprine Hydrochlo), 1 TAB PO BIDPRN PRN for muscle spasm, (Reported) Discharge Statement: "Patient was advised to return to the ER or call 911 if any headaches, dizziness, shortness of breath, chest pain, abdominal pain, bleeding, fevers, or worsening of medical condition. Patient was counseled about treatment plan, medications, possible side effects, patientverbalized understanding. All questions were answered to the best of my ability. This discharge took greater then 30 minutes in planning, reviewing documentation, counseling the patient, and discussing with other team members." ASSESSMENT ASSESSMENT Assessment Intractable back pain MAJOR BRAN [employer] Aug 26, 2024 19:18
== END 2024-08-26 21:06 | disposition home or self-care (01) | DRG 552 ==
LOC: ER 11:50 → EDBD 11:50 → OVERFLOW 17:00 → EAST 22:38
PROVIDERS: ADMIT Nurse Practitioner; ATTEND Nurse Practitioner
DX: M51.369 Other intervertebral disc degeneration, lumbar region without mention of lumbar back pain or lower extremity pain (principal); M47.814 Spondylosis without myelopathy or radiculopathy, thoracic region; G89.29 Other chronic pain; R33.9 Retention of urine, unspecified; M51.27 Other intervertebral disc displacement, lumbosacral region; Z90.710 Acquired absence of both cervix and uterus; M48.061 Spinal stenosis, lumbar region without neurogenic claudication
CPT/HCPCS: 36415; 72128; 72131; 72148; 80048; 80053; 81001; 84702; 85025; 97110; 97116; 97163; G0378; J1100; J1885; J2405